=== PATIENT | male | born 1955 | race Caucasian/White ===

== ENCOUNTER → 2024-02-23 13:45 | Outpatient (REF) | payer MEDICARE, OTHER, SELFPAY | LOC: HWRAD 13:45 | PROVIDERS: ATTENDING PHYSICIAN Specialist; FAMILY PHYSICIAN Family Medicine | DX: C61 Malignant neoplasm of prostate (principal); N39.0 Urinary tract infection, site not specified | CPT/HCPCS: 76770 ==